=== PATIENT | male | born 1965 | race Caucasian/White ===

== ENCOUNTER 2017-03-23 03:42 | Inpatient (IN) | payer OTHER ==
[~2017-03-23] VITALS: Ht 181.6 cm; Wt 86.0 kg
[2017-03-23 04:07] LABS: HEMATOCRIT 38.8 % (38.0-50.0); MCHC 35.8 G/DL (30.0-36.0); MCV 86.4 FL (86-99); MEAN PLAT.VOLUME 10.5 uM^3 (9.0-12.4); PLATELET COUNT 210 K/uL (156-360); RBC DIS.WIDTH-CV 12.1 % (11.8-14.6); RBC DIS.WIDTH-SD 38.4 % (39-53); RED BLOOD COUNT 4.49 M/uL (4.00-5.50); WHITE BLOOD COUNT 13.6 K/uL (4.1-10.2)
[2017-03-23 04:15] LABS: CHLORIDE 104 mEq/L (99-109); SODIUM 136 mEq/L (136-147)
[2017-03-23 04:16] LABS: INTER. NORMALIZED RATIO 3.9; PROTHROMBIN TIME 41.7 (9.2-11.2); PTT 39.6 (25-32)
[2017-03-23 04:17] LABS: GLUCOSE 152 mg/dL (70-99)
[2017-03-23 04:18] LABS: ANION GAP 11 MEQ/L (2-14)
[2017-03-23 04:19] LABS: TOTAL BILIRUBIN 1.1 mg/dL (0.0-1.0)
[2017-03-23 04:20] LABS: ALKALINE PHOSPHATASE 34 IU/L (3-129); SERUM ETHYL ALCOHOL < 10 mg/dL
[2017-03-23 04:21] LABS: GFR ESTIMATE (CALCULATED) 56 mL/min/
[2017-03-23 04:22] LABS: UREA NITROGEN (BUN) 21 mg/dL (9-23)
[2017-03-23 04:27] LABS: TROP-I INTERPRETATION NEGATIVE; TROPONIN-I 0.09 ng/mL (0.0-0.30)
[2017-03-23 06:18] LABS: MAGNESIUM 1.8 mg/dL (1.3-2.7)
[2017-03-23 06:32] VITALS: BP 139/87
[2017-03-23] MEDS ORDERED: LISINOPRIL10 MG PO (11:44)
[2017-03-23] MEDS ORDERED: GARLIC100 MG PO (11:45)
[2017-03-23] MEDS ORDERED: EXTRA STRENGTH500 M1 PO (11:46)
[2017-03-23] MEDS ORDERED: MAGNESIUM250 MG PO (11:46)
[2017-03-23] MEDS ORDERED: WARFARIN SODIU7.5 MG PO (11:48)
[2017-03-23] MEDS ORDERED: WARFARIN SODIUM10 MG PO (11:49)
[2017-03-23 15:42] VITALS: BP 140/84
[2017-03-23 19:59] VITALS: BP 160/101
[2017-03-23 20:31] VITALS: BP 153/94
[2017-03-23 21:00] VITALS: BP 158/91
[2017-03-23 22:11] VITALS: BP 156/95
[2017-03-23 22:38] LABS: BASOPHIL COUNT 0.1 K/uL (0-0.1); EOSINOPHIL (%) 0.5 % (0-5); EOSINOPHIL COUNT 0.1 K/uL (0-0.3); HEMATOCRIT 39.1 % (38.0-50.0); IMMATURE GRANULOCYTE (%) 0.2 % (0.0-0.7); LYMPHOCYTE COUNT 2.5 K/uL (1.0-2.8); MCH 30.8 PG (29.0-34.0); MCHC 35.3 G/DL (30.0-36.0); MCV 87.3 FL (86-99); MEAN PLAT.VOLUME 10.4 uM^3 (9.0-12.4); MONOCYTE (%) 9.4 % (3-12); MONOCYTE COUNT 0.9 K/uL (0-0.8); NEUTROPHIL (%) 62.8 % (45-76); PLATELET COUNT 175 K/uL (156-360); RBC DIS.WIDTH-CV 12.2 % (11.8-14.6); RBC DIS.WIDTH-SD 39.1 % (39-53); RED BLOOD COUNT 4.48 M/uL (4.00-5.50); WHITE BLOOD COUNT 9.5 K/uL (4.1-10.2)
[2017-03-23 22:41] LABS: PTT 39.7 (25-32)
[2017-03-23 22:43] LABS: INTER. NORMALIZED RATIO 2.4; PROTHROMBIN TIME 25.2 (9.2-11.2)
[2017-03-23 22:46] LABS: ANION GAP 6 MEQ/L (2-14); CHLORIDE 106 MEQ/L (99-109); POTASSIUM 4.1 MEQ/L (3.7-5.4); SAMPLE HEMOLYSIS CHECK 0; SAMPLE ICTERIC CHECK 0; SAMPLE LIPEMIA CHECK 0; SODIUM 138 MEQ/L (136-147)
[2017-03-23 22:52] LABS: ALKALINE PHOSPHATASE 34 IU/L (3-129); GFR ESTIMATE (CALCULATED) > 59 mL/min/; UREA NITROGEN (BUN) 17 mg/dL (9-23)
[2017-03-23 22:53] LABS: GLUCOSE 93 mg/dL (70-99)
[2017-03-24 00:25] LABS: ADD MIUA? NO; BILIRUBIN NEGATIVE; BLOOD NEGATIVE; COLOR STRAW ((YELLOW)); GLUCOSE (STRIP) NEGATIVE; KETONES NEGATIVE; LEUKOCYTES NEGATIVE; NITRITE NEGATIVE; PROTEIN (STRIP) NEGATIVE; SPECIFIC GRAVITY 1.006 (1.000-1.030); UROBILINOGEN 0.2 MG/DL (0.2-1.0)
[2017-03-24 04:57] VITALS: BP 131/90
[2017-03-24 06:27] LABS: HEMATOCRIT 39.6 % (38.0-50.0); MCH 31.1 PG (29.0-34.0); MCHC 35.6 G/DL (30.0-36.0); MCV 87.4 FL (86-99); MEAN PLAT.VOLUME 10.8 uM^3 (9.0-12.4); PLATELET COUNT 164 K/uL (156-360); RBC DIS.WIDTH-CV 12.2 % (11.8-14.6); RBC DIS.WIDTH-SD 38.6 % (39-53); RED BLOOD COUNT 4.53 M/uL (4.00-5.50); WHITE BLOOD COUNT 6.9 K/uL (4.1-10.2)
[2017-03-24 06:45] LABS: ANION GAP 7 MEQ/L (2-14); CHLORIDE 107 MEQ/L (99-109); GFR ESTIMATE (CALCULATED) > 59 mL/min/; POTASSIUM 4.5 MEQ/L (3.7-5.4); SAMPLE HEMOLYSIS CHECK 0; SAMPLE ICTERIC CHECK 0; SAMPLE LIPEMIA CHECK 0; SODIUM 140 MEQ/L (136-147); UREA NITROGEN (BUN) 17 mg/dL (9-23)
[2017-03-24 06:47] LABS: GLUCOSE 153 mg/dL (70-99)
[2017-03-24 07:21] VITALS: BP 130/77
[2017-03-24 11:13] VITALS: BP 152/92
[2017-03-24 12:24] LABS: INTER. NORMALIZED RATIO 2.3; PROTHROMBIN TIME 24.4 (9.2-11.2)
[2017-03-24 19:30] VITALS: BP 152/85
[2017-03-24 20:53] VITALS: BP 139/77
[2017-03-25] VITALS (7 sets, daily range): BP systolic 133–182; BP diastolic 77–104
[2017-03-25 05:35] LABS: INTER. NORMALIZED RATIO 2.7; PROTHROMBIN TIME 28.8 (9.2-11.2)
[2017-03-25 05:50] LABS: ANION GAP 7 MEQ/L (2-14); CHLORIDE 108 MEQ/L (99-109); GFR ESTIMATE (CALCULATED) > 59 mL/min/; POTASSIUM 4.3 MEQ/L (3.7-5.4); SAMPLE HEMOLYSIS CHECK 0; SAMPLE ICTERIC CHECK 0; SAMPLE LIPEMIA CHECK 0; SODIUM 140 MEQ/L (136-147); UREA NITROGEN (BUN) 19 mg/dL (9-23)
[2017-03-25 05:53] LABS: EOSINOPHIL (%) 0 % (0-5); HEMATOCRIT 37.4 % (38.0-50.0); IMMATURE GRANULOCYTE (%) 0.3 % (0.0-0.7); INSTRUMENT ABS NEUTROPHIL CT 9.1 K/uL; LYMPHOCYTE COUNT 1.9 K/uL (1.0-2.8); MCH 31.5 PG (29.0-34.0); MCHC 35.8 G/DL (30.0-36.0); MEAN PLAT.VOLUME 11.5 uM^3 (9.0-12.4); MONOCYTE (%) 8.2 % (3-12); NEUTROPHIL (%) 75.7 % (45-76); NEUTROPHIL COUNT 9.1 K/uL (1.8-6.4); PLATELET COUNT 191 K/uL (156-360); RBC DIS.WIDTH-CV 12.3 % (11.8-14.6); RBC DIS.WIDTH-SD 39.2 % (39-53); RED BLOOD COUNT 4.25 M/uL (4.00-5.50)
[2017-03-25 06:40] LABS: GLUCOSE 100 mg/dL (70-99)
[2017-03-26 00:44] VITALS: BP 136/82
[2017-03-26 04:23] VITALS: BP 145/82
[2017-03-26 06:07] LABS: BASOPHIL COUNT 0.1 K/uL (0-0.1); EOSINOPHIL (%) 0.3 % (0-5); HEMATOCRIT 42.8 % (38.0-50.0); IMMATURE GRANULOCYTE (%) 0.6 % (0.0-0.7); IMMATURE GRANULOCYTE COUNT 0.1 K/uL; INSTRUMENT ABS NEUTROPHIL CT 6.5 K/uL; LYMPHOCYTE COUNT 1.6 K/uL (1.0-2.8); MCH 30.4 PG (29.0-34.0); MCV 86.8 FL (86-99); MEAN PLAT.VOLUME 10.4 uM^3 (9.0-12.4); MONOCYTE (%) 8.2 % (3-12); MONOCYTE COUNT 0.7 K/uL (0-0.8); NEUTROPHIL (%) 72.4 % (45-76); NEUTROPHIL COUNT 6.5 K/uL (1.8-6.4); PLATELET COUNT 196 K/uL (156-360); RBC DIS.WIDTH-CV 11.9 % (11.8-14.6); RBC DIS.WIDTH-SD 37.8 % (39-53); RED BLOOD COUNT 4.93 M/uL (4.00-5.50); WHITE BLOOD COUNT 8.9 K/uL (4.1-10.2)
[2017-03-26 06:14] LABS: PROTHROMBIN TIME 21.1 (9.2-11.2)
[2017-03-26 06:46] LABS: ANION GAP 8 MEQ/L (2-14); CHLORIDE 105 MEQ/L (99-109); GFR ESTIMATE (CALCULATED) > 59 mL/min/; GLUCOSE 105 mg/dL (70-99); HDL CHOLESTEROL 32 MG/DL (Desirable>=40); LDL CHOLESTEROL 116 mg/dL (Desirable<100); NON-HDL CHOLESTEROL 139 mg/dL (Desirable<160); POTASSIUM 3.8 MEQ/L (3.7-5.4); SAMPLE HEMOLYSIS CHECK 0; SAMPLE ICTERIC CHECK 0; SAMPLE LIPEMIA CHECK 0; SODIUM 140 MEQ/L (136-147); TOTAL CHOLESTEROL 171 mg/dL (Desirable<200); TRIGLYCERIDES 117 MG/DL (Normal: <150); UREA NITROGEN (BUN) 13 mg/dL (9-23)
[2017-03-26 07:30] VITALS: BP 158/98
[2017-03-26 11:49] VITALS: BP 140/88
[2017-03-26 12:12] LABS: METH RESISTANT S AUREUS PCR NEGATIVE (NEGATIVE)
[2017-03-26 12:13] LABS: PROBE CHECK PASS; SPECIMEN PROCESSING CONTROL PASS
[2017-03-26 17:07] VITALS: BP 160/96
[2017-03-26 19:10] VITALS: BP 158/82
[2017-03-27 00:45] VITALS: BP 138/72
[2017-03-27 05:48] LABS: BASOPHIL COUNT 0.1 K/uL (0-0.1); EOSINOPHIL (%) 1.1 % (0-5); EOSINOPHIL COUNT 0.1 K/uL (0-0.3); HEMATOCRIT 42.6 % (38.0-50.0); IMMATURE GRANULOCYTE (%) 0.2 % (0.0-0.7); INSTRUMENT ABS NEUTROPHIL CT 5.4 K/uL; LYMPHOCYTE COUNT 2.2 K/uL (1.0-2.8); MCH 30.4 PG (29.0-34.0); MCHC 34.7 G/DL (30.0-36.0); MCV 87.5 FL (86-99); MEAN PLAT.VOLUME 10.4 uM^3 (9.0-12.4); MONOCYTE (%) 9.6 % (3-12); MONOCYTE COUNT 0.8 K/uL (0-0.8); NEUTROPHIL COUNT 5.4 K/uL (1.8-6.4); PLATELET COUNT 206 K/uL (156-360); RBC DIS.WIDTH-CV 11.9 % (11.8-14.6); RBC DIS.WIDTH-SD 38.1 % (39-53); RED BLOOD COUNT 4.87 M/uL (4.00-5.50); WHITE BLOOD COUNT 8.6 K/uL (4.1-10.2)
[2017-03-27 05:49] VITALS: BP 146/86
[2017-03-27 06:20] LABS: INTER. NORMALIZED RATIO 1.3; PROTHROMBIN TIME 13.5 (9.2-11.2)
[2017-03-27 07:05] LABS: CHLORIDE 107 mEq/L (99-109); POTASSIUM 4.3 mEq/L (3.7-5.4); SODIUM 143 mEq/L (136-147)
[2017-03-27 07:07] LABS: GLUCOSE 92 mg/dL (70-99)
[2017-03-27 07:09] LABS: ANION GAP 8 MEQ/L (2-14)
[2017-03-27 07:11] LABS: GFR ESTIMATE (CALCULATED) > 59 mL/min/
[2017-03-27 07:12] LABS: UREA NITROGEN (BUN) 19 mg/dL (9-23)
[2017-03-27 13:00] VITALS: BP 156/76
[2017-03-27] MEDS ORDERED: CORDARONE200 MG PO (14:08)
[2017-03-27] MEDS ORDERED: CARVEDILOL3.125 MG PO (14:09)
[2017-03-27] MEDS ORDERED: ATORVASTATIN CA40 MG PO (14:09)
[2017-03-27] MEDS ORDERED: ACETAMINOPHEN-1 EAC1 PO (14:16)
== END 2017-03-27 16:47 | disposition home or self-care (01) | DRG 245 ==
LOC: EME → EDBD 03:42 → EME 03:42 → EDOF 04:45 → 5WEST 06:28 → 4EAST 11:33 → 5WEST 11:33 → 4EAST 19:31
PROVIDERS: Emergency Medicine; Hospitalist; Internal Medicine; Internal Medicine Cardiovascular Disease
DX: I47.2 Ventricular tachycardia (principal); N17.9 Acute kidney failure, unspecified; E78.5 Hyperlipidemia, unspecified; I12.9 Hypertensive chronic kidney disease with stage 1 through stage 4 chronic kidney disease, or unspecified chronic kidney disease; I25.5 Ischemic cardiomyopathy; N18.9 Chronic kidney disease, unspecified; K21.9 Gastro-esophageal reflux disease without esophagitis; T80.89XA Other complications following infusion, transfusion and therapeutic injection, initial encounter; R79.1 Abnormal coagulation profile; L50.9 Urticaria, unspecified; I25.10 Atherosclerotic heart disease of native coronary artery without angina pectoris; T45.515A Adverse effect of anticoagulants, initial encounter; I25.2 Old myocardial infarction; Z79.01 Long term (current) use of anticoagulants; Z79.899 Other long term (current) drug therapy; Z82.49 Family history of ischemic heart disease and other diseases of the circulatory system; Z86.73 Personal history of transient ischemic attack (TIA), and cerebral infarction without residual deficits; Y84.8 Other medical procedures as the cause of abnormal reaction of the patient, or of later complication, without mention of misadventure at the time of the procedure
CPT/HCPCS: 71010; 80048; 80053; 80061; 81003; 83735; 83880; 84443; 84484; 85025; 85027; 85347; 85610; 85730; 86880; 86900; 86901; 87641; 93005; 93306; 99281; 99285; C1769; C1887; C1894; C1899; C9113; G0480; J0282; J0360; J0690; J1200; J1644; J2250; J2930; J3010; J3430; J7030; J7040; P9017; S0020; S0028

== ENCOUNTER 2017-03-31 06:15 | Emergency (ER) | payer OTHER ==
[~2017-03-31] VITALS: Ht 177.8 cm; Wt 88.2 kg
[~2017-03-31 06:15] MED LIST: ACETAMINOPHEN-1 EAC1 PO; ATORVASTATIN CA40 MG PO; CARVEDILOL3.125 MG PO; CORDARONE200 MG PO; EXTRA STRENGTH500 M1 PO; GARLIC100 MG PO; LISINOPRIL10 MG PO; MAGNESIUM250 MG PO; WARFARIN SODIU7.5 MG PO; WARFARIN SODIUM10 MG PO
[2017-03-31 06:52] LABS: HEMATOCRIT 42.5 % (38.0-50.0); MCH 30.7 PG (29.0-34.0); MCHC 35.8 G/DL (30.0-36.0); MCV 85.9 FL (86-99); MEAN PLAT.VOLUME 10.6 uM^3 (9.0-12.4); PLATELET COUNT 184 K/uL (156-360); RBC DIS.WIDTH-SD 37.7 % (39-53); RED BLOOD COUNT 4.95 M/uL (4.00-5.50); WHITE BLOOD COUNT 10.9 K/uL (4.1-10.2)
[2017-03-31 07:21] LABS: ANION GAP 7 MEQ/L (2-14); CHLORIDE 103 MEQ/L (99-109); POTASSIUM 4.1 MEQ/L (3.7-5.4); SAMPLE HEMOLYSIS CHECK 0; SAMPLE ICTERIC CHECK 0; SAMPLE LIPEMIA CHECK 0; SODIUM 139 MEQ/L (136-147)
[2017-03-31 07:27] LABS: TROP-I INTERPRETATION NEGATIVE; TROPONIN-I 0.04 ng/mL (0.0-0.30)
[2017-03-31 07:34] LABS: GFR ESTIMATE (CALCULATED) > 59 mL/min/; GLUCOSE 113 mg/dL (70-99); UREA NITROGEN (BUN) 17 mg/dL (9-23)
[2017-03-31 09:30] LABS: INTER. NORMALIZED RATIO 1.4; PROTHROMBIN TIME 14.3 (9.2-11.2)
[2017-03-31 09:39] LABS: TROP-I INTERPRETATION NEGATIVE; TROPONIN-I 0.04 ng/mL (0.0-0.30)
[2017-03-31 10:32] VITALS: BP 141/83
== END 2017-03-31 10:37 | disposition home or self-care (01) ==
LOC: EME 06:15
PROVIDERS: Emergency Medicine
DX: R00.2 Palpitations (principal); F41.1 Generalized anxiety disorder; I47.2 Ventricular tachycardia; I25.2 Old myocardial infarction; Z86.73 Personal history of transient ischemic attack (TIA), and cerebral infarction without residual deficits; Z95.810 Presence of automatic (implantable) cardiac defibrillator; Z79.01 Long term (current) use of anticoagulants
CPT/HCPCS: 71020; 80048; 84484; 85027; 85610; 93005; 99281; 99284

== ENCOUNTER 2017-06-17 20:03 | Observation (INO) | payer OTHER ==
[~2017-06-17] VITALS: Ht 177.8 cm; Wt 90.8 kg
[2017-06-17 22:44] LABS: BASOPHIL COUNT 0.1 K/uL (0-0.1); EOSINOPHIL (%) 0.8 % (0-5); EOSINOPHIL COUNT 0.1 K/uL (0-0.3); HEMATOCRIT 45.1 % (38.0-50.0); IMMATURE GRANULOCYTE (%) 0.4 % (0.0-0.7); LYMPHOCYTE COUNT 1.3 K/uL (1.0-2.8); MCH 30.3 PG (29.0-34.0); MCV 86.6 FL (86-99); MEAN PLAT.VOLUME 10.9 uM^3 (9.0-12.4); MONOCYTE (%) 5.2 % (3-12); MONOCYTE COUNT 0.6 K/uL (0-0.8); NEUTROPHIL (%) 81.3 % (45-76); PLATELET COUNT 187 K/uL (156-360); RBC DIS.WIDTH-CV 11.8 % (11.8-14.6); RBC DIS.WIDTH-SD 37.4 % (39-53); RED BLOOD COUNT 5.21 M/uL (4.00-5.50); WHITE BLOOD COUNT 11.1 K/uL (4.1-10.2)
[2017-06-17 22:55] LABS: CHLORIDE 108 mEq/L (99-109); POTASSIUM 3.9 mEq/L (3.7-5.4); SODIUM 140 mEq/L (136-147)
[2017-06-17 22:57] LABS: GLUCOSE 100 mg/dL (70-99)
[2017-06-17 22:58] LABS: ANION GAP 11 MEQ/L (2-14)
[2017-06-17 23:01] LABS: GFR ESTIMATE (CALCULATED) > 59 mL/min/
[2017-06-17 23:02] LABS: UREA NITROGEN (BUN) 18 mg/dL (9-23)
[2017-06-17 23:03] LABS: CREATINE KINASE 194 IU/L (1-294)
[2017-06-17 23:05] LABS: TROP-I INTERPRETATION NEGATIVE; TROPONIN-I < 0.01 ng/mL (0.0-0.30)
[2017-06-18] MEDS ORDERED: AMIODARONE HCL200 MG PO (00:27)
[2017-06-18] MEDS ORDERED: CARVEDILOL3.125 MG PO (00:28)
[2017-06-18] MEDS ORDERED: LIPITOR40 MG PO (00:28)
[2017-06-18 02:05] LABS: INTER. NORMALIZED RATIO 2.5; PROTHROMBIN TIME 28.5 SEC (10.2-12.9)
[2017-06-18 03:16] VITALS: BP 185/83
[2017-06-18 07:35] VITALS: BP 136/76
[2017-06-18 12:27] LABS: INTER. NORMALIZED RATIO 2.6
[2017-06-18 12:39] VITALS: BP 139/80
[2017-06-18 12:41] LABS: TROP-I INTERPRETATION NEGATIVE; TROPONIN-I < 0.01 ng/mL (0.0-0.30)
[2017-06-18] MEDS ORDERED: LORAZEPAM0.5 MG PO (14:07)
== END 2017-06-18 15:53 | disposition home or self-care (01) ==
LOC: EME 20:03 → EDOF 06-18 01:12 → ENRESERV 06-18 01:18 → 5WEST 06-18 03:04
PROVIDERS: Emergency Medicine; Physician Assistant Medical
DX: R00.2 Palpitations (principal); I47.2 Ventricular tachycardia; I25.10 Atherosclerotic heart disease of native coronary artery without angina pectoris; I25.2 Old myocardial infarction; Z91.14 Patient's other noncompliance with medication regimen; I16.0 Hypertensive urgency; F41.9 Anxiety disorder, unspecified; I49.9 Cardiac arrhythmia, unspecified; Z86.73 Personal history of transient ischemic attack (TIA), and cerebral infarction without residual deficits; I11.0 Hypertensive heart disease with heart failure; I50.9 Heart failure, unspecified; F32.9 Major depressive disorder, single episode, unspecified; E78.5 Hyperlipidemia, unspecified; Z95.810 Presence of automatic (implantable) cardiac defibrillator; T44.7X6A Underdosing of beta-adrenoreceptor antagonists, initial encounter; T46.2X6A Underdosing of other antidysrhythmic drugs, initial encounter; Z91.128 Patient's intentional underdosing of medication regimen for other reason; Z82.49 Family history of ischemic heart disease and other diseases of the circulatory system; Z87.891 Personal history of nicotine dependence; Z79.01 Long term (current) use of anticoagulants; Z87.898 Personal history of other specified conditions
CPT/HCPCS: 71010; 80048; 82550; 84484; 85025; 85610; 93005; 99281; 99285; G0378

== ENCOUNTER 2017-07-07 23:36 | Emergency (ER) | payer OTHER ==
[~2017-07-07] VITALS: Ht 180.3 cm; Wt 95.4 kg
[~2017-07-07 23:36] MED LIST changes: +AMIODARONE HCL200 MG PO; +LIPITOR40 MG PO; +LORAZEPAM0.5 MG PO
[2017-07-08 02:59] VITALS: BP 155/100
== END 2017-07-08 03:00 | disposition home or self-care (01) ==
LOC: EME 23:36
DX: R00.2 Palpitations (principal); I25.2 Old myocardial infarction; F41.9 Anxiety disorder, unspecified; Z95.0 Presence of cardiac pacemaker; Z79.01 Long term (current) use of anticoagulants; Z86.73 Personal history of transient ischemic attack (TIA), and cerebral infarction without residual deficits
CPT/HCPCS: 93005; 99281; 99285